=== PATIENT | female | born 1940 | race Caucasian/White ===

== ENCOUNTER 2023-03-02 15:07 | Emergency (ER) | payer MEDICARE, SELFPAY ==
--- NOTE | 2023-03-02 15:15 | ED.URI ---
HPI - URI/Sore Throat General Chief Complaint: Upper Respiratory Infection Stated Complaint: Dizziness,Sore Throat,Lt Ear Irritation,RT Eye Time Seen by Provider: 03/02/23 15:15 Source: patient Mode of arrival: ambulatory Limitations: no limitations History of Present Illness HPI Narrative: Kassi is an 82-year-old female patient presenting to the clinic today with complaints of dizziness, sore throat, left ear pain, and bilateral eye irritation. She reports symptoms began on Friday however yesterday she felt a popping sensation like an explosion in her left ear. States she is having burning sensation to the right side of her throat. Complaints of some dizziness and congestion. Is having a productive cough but is unable to tell me the color of the cough she denies any increase in shortness of breath. She does have a history of COPD. Does have mucopurulent green discharge coming from bilateral eyes. No fever or chills. No known exposure to anyone with COVID, flu, or strep. Allergies to penicillin and sulfa drugs. MD elicited complaint: sore throat and nasal congestion Related Data Home Medications Medication Instructions Recorded Confirmed apixaban 5 mg tablet (Eliquis) 5 mg PO DAILY 03/02/23 03/02/23 aspirin 81 mg chewable tablet 81 mg PO DAILY 03/02/23 03/02/23 atorvastatin 10 mg tablet 10 mg PO DAILY 03/02/23 03/02/23 cholecalciferol (vitamin D3) 25 25 mcg PO DAILY 03/02/23 03/02/23 mcg (1,000 unit) tablet levothyroxine 125 mcg tablet 125 mcg PO DAILY 03/02/23 03/02/23 magnesium oxide 250 mg PO DAILY 03/02/23 03/02/23 meclizine 25 mg tablet 25 mg PO PRN PRN Dizziness Or 03/02/23 03/02/23 Vertigo montelukast 10 mg tablet 10 mg PO HS 03/02/23 03/02/23 pantoprazole 40 mg tablet,delayed 40 mg PO DAILY 03/02/23 03/02/23 release Allergies Allergy/AdvReac Type Severity Reaction Status Date / Time Penicillins AdvReac Mild Rash Verified 03/02/23 15:34 Sulfa (Sulfonamide AdvReac Mild Rash Verified 03/02/23 15:34 Antibiotics) Review of Systems Review of Systems: Pertinent positives per HPI. Patient denies any fever, chills, rash, visual changes, chest pain, palpitations, nausea, vomiting, diarrhea, constipation, abdominal pain, or any urinary issues. [facility] Comments At the time of my signature, I reviewed and agree with the nursing past medical, surgical, social, and family history. There is no relevant family history pertinent to the patient complaint. Exam Narrative: General: Well-developed, obese, in no apparent distress, walks with a walker Head: Normocephalic, atraumatic Eyes: Pupils equally round and reactive to light bilaterally, EOM intact, bilateral sclera and conjunctive injected, green mucopurulent discharge discharge, lids mildly swelling Ears: Right TMs intact and clear, left TM intact, bulging, red, right ear canal clear, left ear canal with brown otorrhea, decreased hearing in the left ear, wears hearing aid. Nose: Nares patent, clear discharge, no inflammation, no sinus tenderness. Mouth: Oral pharynx red/irritated without lesions or masses, good dentition, MMM. Tonsils and adenoids surgically absent Neck: Supple, trachea midline, no enlargement of anterior or posterior cervical nodes, no thyroid masses or goiter palpable. Cardio: Regular rate and rhythm, s1 and s2 normal, no murmur appreciated. Resp: Diminished breath sounds in the lower bases otherwise clear, no rhonchi, rales, wheezing or rubs Course Course Emergency Course: Portions of this record may have been created with voice recognition software. Level of Care: Express Care Visit Vital Signs Vital signs: Vital signs reviewed MDM - URI/Sore Throat MDM Narrative Medical decision making narrative: At the time of visit patient is resting comfortably on the exam table. I suspect patient has URI pharyngitis left otitis media and externa and conjunctivitis with vertigo. Will place the patient on tobramycin eyedrop
[2023-03-02 15:26] VITALS: BP 158/65; PULSE 79; RESP 18; TEMP 37.1; O2SAT 95
== END 2023-03-02 15:41 | disposition home or self-care (01) ==
LOC: EXPTROY 15:17
PROVIDERS: Emergency Provider Nurse Practitioner Family
DX: R42 Dizziness and giddiness (principal); J06.9 Acute upper respiratory infection, unspecified; H66.002 Acute suppurative otitis media without spontaneous rupture of ear drum, left ear; J02.9 Acute pharyngitis, unspecified; H60.312 Diffuse otitis externa, left ear; H10.33 Unspecified acute conjunctivitis, bilateral; J44.9 Chronic obstructive pulmonary disease, unspecified
CPT/HCPCS: 99213; G0463

== ENCOUNTER 2023-05-07 10:31 | Outpatient (CLI) | payer MEDICARE, SELFPAY ==
--- NOTE | ~2023-05-07 | XR_ITS ---
EXAMINATION: XR UGIAC w barium swallow DATE: 05/07/2023 11:58 INDICATION: Diaphragmatic hernia without obstruction or gangrene TECHNIQUE: The patient drank thick barium, gas-producing crystals, and thin barium. Fluoroscopic spot radiographs of the hypopharynx, esophagus, stomach and proximal small bowel were obtained. Fluorosco py exposure time was 2.4 minutes. A total of 1530 images were recorded. COMPARISON: None. FINDINGS: The pharynx is symmetric and without evidence of mass lesion or mucosal irregularity. Esophageal erin lity appears normal in the proximal third of the esophagus. There is interruption of the primary and secondary peristaltic waves at the level of the proximal to mid thirds of the esophagus. This results in pooling of contrast in the mid to distal esophagus. There is a small sliding-type hiatal hernia. There is abnormal contour contour to the posterior wall of the proximal stomach where it extends thro ugh the thoracic hiatus and which may be related to a reported prior attempted hernia repair. Single episode of spontaneous gastroesophageal reflux of a moderate amount of contrast into the mid to dista l esophagus was observed. No additional gastroesophageal reflux was able to be elicited with provocat tamra maneuvers. There is a small duodenal diverticulum along the third portion of the duodenum. IMPRESSION: 1. Small sliding-type hiatal hernia with gastroesophageal reflux. There is an abnormal contour along the posterior margin of the stomach at the thoracic outlet which could be related to a reported prior hernia repair. Correlate with surgical history and could consider further evaluation with endoscopy as clinically indicated. 2. Esophageal dysmotility with loss of the primary and secondary peristaltic waves in the patulous mi d to distal esophagus. Reviewed, dictated and finalized at location A. IMPRESSION: 1. Small sliding-type hiatal hernia with gastroesophageal reflux. There is an a bnormal contour along the posterior margin of the stomach at the thoracic outle t which could be related to a reported prior hernia repair. Correlate with surg ical history and could consider further evaluation with endoscopy as clinically indicated. 2. Esophageal dysmotility with loss of the primary and secondary peristaltic wa ves in the patulous mid to distal esophagus.
== END 2023-05-07 10:32 | disposition home or self-care (01) ==
LOC: ANHIMG 10:41
PROVIDERS: Visit Provider Nurse Practitioner Family
DX: K44.9 Diaphragmatic hernia without obstruction or gangrene (principal); R13.10 Dysphagia, unspecified; K21.9 Gastro-esophageal reflux disease without esophagitis
CPT/HCPCS: 74246

== ENCOUNTER 2023-08-07 02:06 | Day surgery (SDC) | payer MEDICARE, SELFPAY ==
[2023-07-22 10:57] VITALS: BMI 37.0
--- NOTE | 2023-07-28 10:57 | PC.NURSE ---
Spoke with _DAUGHTER IN LAW ANN__ regarding medication __ELIQUIS__. Pt. verbalizes understanding that the last dose of __ELIQUIS__ is to be taken on __08/04/2023___ and the Endoscopist will instruct them when to restart after the procedure. PT. is to remain on Aspirin.
--- NOTE | 2023-08-05 12:02 | SUR.PREOP ---
Message left with patient regarding upcoming procedure. Reviewed preop instructions, appointment times, and procedure prep.
--- NOTE | 2023-08-06 15:51 | PM.HPGS ---
History of Present Illness History of Present Illness Consent: Risks, benefits, and alternatives have been discussed and questions answered. Patient agrees to proceed with procedure. Chief complaint: GERD without esophagitis Narrative: Kassi Chairez is a 83 year old female Who is being investigated today for several issues related to her upper gastrointestinal tract.? She has a long history of acid reflux and had a hiatal hernia repair in 2019 in [place].? She states however that she is still having issues which are somewhat different.? She gets heartburn in the upper chest area usually after meal.? She has increased her PPI to b.i.d..? Sucralfate was added to her regimen at her last visit here in April.? She states that that combination has helped with her neck discomfort.? She points to the left side of her neck and states that she was told by someone in [place] that she has an extra loop in that area.? A recent upper GI barium swallow did not show anything like Zenker's diverticulum.? It did show a sliding-type hiatal hernia and some deformity the proximal stomach which may be related to her previous surgery.? She has choked a couple? of times recently, once on popcorn, once on noodles.? She denies having to stop eating a meal because food is stuck.? She has a 3rd discomfort, which is in the epigastric area and is difficult for her to put into words Review of Systems Review of Systems: All systems reviewed & are unremarkable except as noted in HPI and below PMFSH Past Medical History Medical History Allergies Arthritis Dysphagia Gastroesophageal reflux disease GERD with stricture Heart attack Hiatal hernia Stroke Thyroid disorder Surgical History Surgical History H/O section H/O knee surgery History of carpal tunnel surgery Social History Social History Smoking status: Never smoker Alcohol intake: never Substance use: never Substance use type: does not use Living arrangements: assisted living Additional living arrangements comments: [facility] Spiritual care concerns: No Meds Home Medications and Allergies Home Medications Medication Instructions Recorded Confirmed Type apixaban 5 mg tablet (Eliquis) 5 mg PO BID 03/02/23 08/07/23 History aspirin 81 mg chewable tablet 81 mg PO DAILY 03/02/23 08/07/23 History magnesium oxide 250 mg PO DAILY 03/02/23 08/07/23 History meclizine 25 mg tablet 25 mg PO BID Dizziness Or Vertigo 03/02/23 08/07/23 History montelukast 10 mg tablet 10 mg PO HS 03/02/23 08/07/23 History sucralfate 1 gram tablet (Carafate) 1 g PO TID 1 month #90 tabs 06/17/23 08/07/23 Rx acetaminophen 500 mg capsule 500 mg PO Q6H PRN Pain 07/22/23 08/07/23 History aluminum hydrox-magnesium carb 95 15 ml PO DAILY PRN REFLUX 07/22/23 08/07/23 History mg-358 mg/15 mL oral suspension (Gaviscon) atorvastatin 40 mg tablet 40 mg PO DAILY 07/22/23 08/07/23 History cholecalciferol (vitamin D3) 50 50 mcg PO DAILY 07/22/23 08/07/23 History mcg (2,000 unit) capsule (Vitamin D3) levothyroxine 112 mcg tablet 112 mcg PO DAILY 07/22/23 08/07/23 History pantoprazole 40 mg tablet,delayed 40 mg PO BID 07/22/23 08/07/23 History release sucralfate 1 gram tablet 1 g PO TID 07/22/23 08/07/23 History Allergies Allergy/AdvReac Type Severity Reaction Status Date / Time Penicillins Allergy Intermediate Rash Verified 08/07/23 11:28 Sulfa (Sulfonamide Allergy Intermediate Rash Verified 08/07/23 11:28 Antibiotics) Exam Const: General: alert Orientation/consciousness: patient oriented x3 Resp: Auscultation: clear to auscultation bilaterally Cardio: Rhythm: regular rhythm GI: GI Palp: Yes Soft to palpation and No Tenderness to palpation present (GI) Neuro: General: patient oriented x3 Assessment and Plan As
[2023-08-07 11:32] VITALS: BP 172/70; PULSE 63; RESP 18; TEMP 36.3; O2SAT 98
[2023-08-07] MEDS: LACTATED RINGERS 1,000 ML 150 ML IV CONT (11:42)
--- NOTE | 2023-08-07 12:01 | WPDANESEPPF ---
Anes - Initial Pre Proc Eval Procedure: Operation Date: 08/07/23 12:30 Proposed Procedures p Esophagogastroduodenoscopy EGD - Jere Gipson MD Date/Time: 08/07/23 12:01 Surgeon: Jere Gipson MD Pre Op Diagnosis: GERD without esophagitis Patient Data Age: 83 Gender: F Height: 1.52 m Weight: 89.3 kg Last Vital Signs Temp 97.4 F L 08/07/23 11:32 Pulse 63 08/07/23 11:32 Resp 18 08/07/23 11:32 BP 172/70 H 08/07/23 11:32 Pulse Ox 98 08/07/23 11:32 O2 Del Method Room Air 08/07/23 11:32 Allergies Allergy/AdvReac Type Severity Reaction Status Date / Time Penicillins Allergy Intermediate Rash Verified 08/07/23 11:28 Sulfa (Sulfonamide Allergy Intermediate Rash Verified 08/07/23 11:28 Antibiotics) Home Medications Medication Instructions Recorded Confirmed Type apixaban 5 mg tablet (Eliquis) 5 mg PO BID 03/02/23 08/07/23 History aspirin 81 mg chewable tablet 81 mg PO DAILY 03/02/23 08/07/23 History magnesium oxide 250 mg PO DAILY 03/02/23 08/07/23 History meclizine 25 mg tablet 25 mg PO BID Dizziness Or Vertigo 03/02/23 08/07/23 History montelukast 10 mg tablet 10 mg PO HS 03/02/23 08/07/23 History sucralfate 1 gram tablet (Carafate) 1 g PO TID 1 month #90 tabs 06/17/23 08/07/23 Rx acetaminophen 500 mg capsule 500 mg PO Q6H PRN Pain 07/22/23 08/07/23 History aluminum hydrox-magnesium carb 95 15 ml PO DAILY PRN REFLUX 07/22/23 08/07/23 History mg-358 mg/15 mL oral suspension (Gaviscon) atorvastatin 40 mg tablet 40 mg PO DAILY 07/22/23 08/07/23 History cholecalciferol (vitamin D3) 50 50 mcg PO DAILY 07/22/23 08/07/23 History mcg (2,000 unit) capsule (Vitamin D3) levothyroxine 112 mcg tablet 112 mcg PO DAILY 07/22/23 08/07/23 History pantoprazole 40 mg tablet,delayed 40 mg PO BID 07/22/23 08/07/23 History release sucralfate 1 gram tablet 1 g PO TID 07/22/23 08/07/23 History Patient hx anesthesia problems: none Family hx anesthesia problems: none Results Review: All pre-operative results and documents have been reviewed as part of the pre-operative evaluation. [facility] Past Medical History Medical History Allergies Arthritis Dysphagia Gastroesophageal reflux disease GERD with stricture Heart attack Hiatal hernia Stroke Thyroid disorder Surgical History Surgical History H/O section H/O knee surgery History of carpal tunnel surgery Social History Social History Smoking status: Never smoker Alcohol intake: never Substance use: never Substance use type: does not use Living arrangements: assisted living Additional living arrangements comments: [facility] Spiritual care concerns: No Anes - Eval Final PreProcedure Day of Procedure 08/07/23 12:01 Patient weight: obese Heart: regular rate and rhythm Lungs: clear to auscultation Airway: Mallampati scale class II Neurological: alert and oriented Last oral intake: >/= 8 hours ASA classification: III Emergent: no Anesthetic plan: proceed Anesthesia type and monitoring: general GIVS and standard monitoring Results Review: All pre-operative results and documents have been reviewed as part of the pre-operative evaluation. Informed Consent: The patient's anesthetic plan and its attendant risks and benefits were discussed with the patient/family/POA. Questions were solicited and answers provided to the satisfaction of the patient/family/POA.
[2023-08-07 13:04] VITALS: BP 154/74; PULSE 61; RESP 22; O2SAT 100
[2023-08-07 13:14] VITALS: BP 152/76; PULSE 64; RESP 18; O2SAT 98
[2023-08-07 13:24] VITALS: BP 164/78; PULSE 60; RESP 18; O2SAT 98
== END 2023-08-07 13:29 | disposition home or self-care (01) ==
PROVIDERS: PCP Nurse Practitioner; Visit Provider Internal Medicine Gastroenterology
PROC: 0DJ08ZZ Inspection of Upper Intestinal Tract, Via Natural or Artificial Opening Endoscopic (ICD-10-PCS; CPT 43235; principal; 2023-08-07 12:30)
DX: K22.10 Ulcer of esophagus without bleeding (principal); K44.9 Diaphragmatic hernia without obstruction or gangrene; K21.00 Gastro-esophageal reflux disease with esophagitis, without bleeding; E07.9 Disorder of thyroid, unspecified; I25.2 Old myocardial infarction; E66.9 Obesity, unspecified; Z68.38 Body mass index [BMI] 38.0-38.9, adult; Z79.01 Long term (current) use of anticoagulants; Z79.82 Long term (current) use of aspirin; Z86.73 Personal history of transient ischemic attack (TIA), and cerebral infarction without residual deficits
CPT/HCPCS: 43239; 87081; 88305; J2704; J7120

== ENCOUNTER 2023-09-18 18:35 | Emergency (ER) | payer MEDICARE, SELFPAY ==
--- NOTE | ~2023-09-18 | CT_ITS ---
EXAMINATION: CT cervical spine wo con DATE: 09/18/2023 21:34 INDICATION: Head injury TECHNIQUE: Computed tomography (CT) of the cervical spine was performed without intravenous contrast. The dose-length product (DLP) was 493.38 mGy-cm. Automated exposure control and iterative reconstruc tion technique were employed. COMPARISON: None FINDINGS: There are 2 mm of anterolisthesis of C6 on C7. There is moderate loss of intervertebral dis c space height at C5-6. The odontoid process is intact. The vertebral body heights are maintained. Th ere is no fracture. There is multilevel moderate facet and uncovertebral joint osteoarthritis. Bilate ral mastoid effusions are noted. There is fibrous union of the posterior C1 ring. IMPRESSION: 1. Mild to moderate cervical spondylosis without acute findings. Reviewed, dictated and finalized at location F. STOCK MAKER
--- NOTE | ~2023-09-18 | CT_ITS ---
EXAMINATION: CT brain wo con INDICATION: Head injury COMPARISON: None TECHNIQUE: Standard unenhanced head CT. The dose-length product (DLP) was 681.00 mGy-cm. The mA was a djusted according to patient size. Iterative reconstruction technique was employed. FINDINGS: No acute intraparenchymal hemorrhage. No evidence of mass lesion. No evidence of acute infa rction. There are areas of prior infarction in the left cerebellum, right temporal lobe, and the bila teral frontal lobes. There is mild periventricular and subcortical hypodensity probably related to sm all vessel ischemic disease. There is mild prominence of the sulci and ventricles related to cerebral atrophy. Intracranial calcified cerebral atherosclerosis is noted. No extra-axial collections. No ma ss effect or midline shift. Changes in the globes are likely from ocular lens surgery. There is a pos terior scalp hematoma. The visualized sinuses and mastoid air cells are well aerated. IMPRESSION: 1. Areas of prior infarction without acute intracranial abnormality. 2. Age related findings. Reviewed, dictated and finalized at location F. FITS CLERK
[2023-09-18 18:37] VITALS: BP 158/86; PULSE 73; RESP 16; TEMP 36.8; O2SAT 100
[2023-09-18 20:28] VITALS: BP 168/81; PULSE 67; RESP 24; O2SAT 95
--- NOTE | 2023-09-18 21:35 | ED.FALL ---
HPI - Fall General Chief Complaint: Fall Stated Complaint: fall, hit head, on eliquis Time Seen by Provider: 09/18/23 21:16 Source: patient Limitations: no limitations History of Present Illness HPI Narrative: Patient is a 83-year-old female presents to the emergency department complaining of a fall. Patient states around 6:00 p.m. she was in her room and did have the lights on and went to go sit down on a chair but missed the chair and of sitting down on a basket fell backwards hitting the back of her head. Patient denies loss of consciousness. Patient is to use of Eliquis regularly. Patient admits to being ambulatory since the event. Patient denies any pain anywhere aside from for she had her head which is mild. Patient denies numbness, weakness, urinary const, stool incontinence, recent illness, chest pain, difficulty breathing, paresthesias, vomiting, nausea, diarrhea, melena, hematochezia or vision changes, difficulty swallowing, neck pain, back pain. Patient denies any blood loss from anywhere. Related Data Home Medications Medication Instructions Recorded Confirmed apixaban 5 mg tablet (Eliquis) 5 mg PO BID 03/02/23 08/20/23 aspirin 81 mg chewable tablet 81 mg PO DAILY 03/02/23 08/20/23 magnesium oxide 250 mg PO DAILY 03/02/23 08/20/23 meclizine 25 mg tablet 25 mg PO BID Dizziness Or Vertigo 03/02/23 08/20/23 montelukast 10 mg tablet 10 mg PO HS 03/02/23 08/20/23 aluminum hydrox-magnesium carb 95 15 ml PO DAILY PRN REFLUX 07/22/23 08/20/23 mg-358 mg/15 mL oral suspension (Gaviscon) atorvastatin 40 mg tablet 40 mg PO DAILY 07/22/23 08/20/23 cholecalciferol (vitamin D3) 50 50 mcg PO DAILY 07/22/23 08/20/23 mcg (2,000 unit) capsule (Vitamin D3) levothyroxine 112 mcg tablet 112 mcg PO DAILY 07/22/23 08/20/23 pantoprazole 40 mg tablet,delayed 40 mg PO BID 07/22/23 08/20/23 release sucralfate 1 gram tablet 1 g PO TID 07/22/23 08/20/23 Allergies Allergy/AdvReac Type Severity Reaction Status Date / Time Penicillins Allergy Intermediate Rash Verified 09/18/23 20:33 Sulfa (Sulfonamide Allergy Intermediate Rash Verified 09/18/23 20:33 Antibiotics) Review of Systems Review of Systems: A 10 system review of systems was completed on the patient and is negative except for what is stated in the HPI. Nursing and ancillary documentation was reviewed. [facility] Past Medical History Medical History (Updated 09/18/23 @ 22:23 by Anselmo Brumfield DO) Allergies Arthritis Dysphagia Gastroesophageal reflux disease GERD with stricture Heart attack Hiatal hernia recurrent hernia and recalcitrant reflux Stroke Thyroid disorder Surgical History Surgical History H/O section H/O knee surgery History of carpal tunnel surgery Family History Family History Grandparent Diabetes mellitus Mother Heart disease Father Cerebrovascular accident Hypertension Social History Social History Smoking status: Never smoker Alcohol intake: never Substance use: never Substance use type: does not use Living arrangements: assisted living Additional living arrangements comments: [facility] [place] Spiritual care concerns: No Comments At time of signature, I have reviewed and agree with nursing past medical, surgical, social and family history unless otherwise noted. Please see the nursing chart for further information. There is no relevant family history pertinent to the presenting complaint. Exam Narrative: CONST: No acute distress. Well nourished. HENMT: Head is normocephalic. Tacky mucous membranes. No posterior oropharynx erythema. Small area of swelling to the superior occipital region without any overlying breaks in the skin, no palpable bony deformities, mild tenderness to palpation. EYES: No conjunctival icte
[2023-09-18] MEDS: ACETAMINOPHEN 500 MG TABLET 1000 MG PO (22:04)
[2023-09-18 23:27] VITALS: BP 157/64; PULSE 67; RESP 17; O2SAT 97
== END 2023-09-18 23:27 | disposition home or self-care (01) ==
PROVIDERS: Emergency Provider Student in an Organized Health Care Education/Training Program; PCP Nurse Practitioner
DX: S00.03XA Contusion of scalp, initial encounter (principal); I25.2 Old myocardial infarction; E07.9 Disorder of thyroid, unspecified; K21.9 Gastro-esophageal reflux disease without esophagitis; M19.90 Unspecified osteoarthritis, unspecified site; Z86.73 Personal history of transient ischemic attack (TIA), and cerebral infarction without residual deficits; Z79.01 Long term (current) use of anticoagulants; M47.812 Spondylosis without myelopathy or radiculopathy, cervical region; W07.XXXA Fall from chair, initial encounter
CPT/HCPCS: 70450; 72125; 99284; A9270

== ENCOUNTER 2023-09-25 11:38 | Emergency (ER) | payer MEDICARE, SELFPAY ==
[2023-09-25 11:43] VITALS: BP 143/84; PULSE 66; RESP 20; TEMP 36.4; O2SAT 100
[2023-09-25 11:47] VITALS: BP 183/89
[2023-09-25 11:58] VITALS: BP 166/79; PULSE 60; RESP 18; O2SAT 98
--- NOTE | 2023-09-25 12:37 | ECG_ITS ---
Measurements Intervals [place] Rate: 56 P: 2 MS: 202 QRS: -11 QRSD: 106 T: 21 QT: 405 QTc: 391 Interpretive Statements SINUS BRADYCARDIA DELAYED PRECORDIAL R/S TRANSITION INFERIOR INFARCT, AGE INDETERMINATE BORDERLINE T WAVE ABNORMALITY- ANTERIOR LEADS ABNORMAL ECG NO PREVIOUS ECG AVAILABLE FOR COMPARISON Electronically Signed On 09-25-2023 12:56:10 PACKING MACHINE OPERATOR by Regulo Lockwood D.O.
[2023-09-25] MEDS: BELLADONNA ALK/PHENOB ELIX 10 ML, MAG HYDROX/ALUMINUM HYD/SIMETH 30 ML, LIDOCAINE HCL 2... PO (12:45)
[2023-09-25 13:07] LABS: Basophils Absolute Auto 0.1 K/mm3 (0.0-0.1); Basophils Percent Auto 1.5 % (0.2-1.2); Eosinophils Absolute Auto 0.4 K/mm3 (0-0.3); Eosinophils Percent Auto 5.6 % (0-4.4); Hematocrit 46.4 % (37.0-47.0); Hemoglobin 14.6 g/dL (12.0-15.0); Immature Granulocyte Absolute 0.02 K/mm3 (0.00-0.031); Immature Granulocyte Percent A 0.3 % (0-0.5); Lymphocytes Absolute Auto 1.84 K/mm3 (0.9-3.2); Lymphocytes Percent Auto 25.2 % (18.3-44.2); Mean Corpuscular HGB Conc 31.5 g/dl (32-36); Mean Corpuscular Hemoglobin 28.6 pg (26-34); Mean Platelet Volume 10.8 fl (7.4-10.4); Monocytes Absolute Auto 0.5 K/mm3 (0.1-0.6); Monocytes Percent Auto 7.4 % (2.6-8.5); Neutrophils Absolute Auto 4.4 K/mm3 (1.3-6.7); Platelet Count Result 250 k/mm3 (150-375); Red Cell Distribution Width 13.5 % (11.5-14.5); White Blood Count 7.3 K/mm3 (4.5-10.0)
[2023-09-25 13:19] LABS: Alanine Aminotransferase 10 U/L (6-35); Alkaline Phosphatase 171 U/L (38-126); Anion Gap 5 mmol/L (8-16); Aspartate Amino Transferase 27 U/L (14-36); Bilirubin,Total 0.7 mg/dL (0.2-1.3); Blood Urea Nitrogen 19 mg/dL (7-17); Calcium 10.4 mg/dL (8.4-10.2); Carbon Dioxide 28 mmol/L (22-30); Chloride 104 mmol/L (98-107); Estimated CRCL calculation 41 ml/min; Estimated Glomerular Filt Rate 60; Glucose 110 mg/dL (65-110); Potassium 4.7 mmol/L (3.4-5.0); Sodium 137 mmol/L (137-145)
--- NOTE | 2023-09-25 13:56 | ED.GENADULT ---
HPI - General Adult General Chief complaint: Recheck/Abnormal Lab/Rx Stated complaint: High BP Time Seen by Provider: 09/25/23 12:11 History of Present Illness HPI narrative: Patient is an 83-year-old female who presents ER with concerns for elevated blood pressure. She was at the dentist earlier in reports that the air freshener coming in through the vents was overwhelming. She had them open the windows at the dental office. She began getting more shaky and it was causing her distress. Also while she was lying back she was having symptoms from her hiatal hernia. As she is standing up to leave a she was getting lightheaded in the took her blood pressure and found her systolic blood pressure be above 200 mmHg. She has history of CVA and want to come in to be checked. She has no chest pain or shortness of breath at this time. She does have mild elevation of blood pressure upon arrival. She reports compliance with home medication. Related Data Home Medications Medication Instructions Recorded Confirmed apixaban 5 mg tablet (Eliquis) 5 mg PO BID 03/02/23 09/25/23 aspirin 81 mg chewable tablet 81 mg PO DAILY 03/02/23 09/25/23 magnesium oxide 250 mg PO DAILY 03/02/23 09/25/23 meclizine 25 mg tablet 25 mg PO BID Dizziness Or Vertigo 03/02/23 09/25/23 montelukast 10 mg tablet 10 mg PO HS 03/02/23 09/25/23 aluminum hydrox-magnesium carb 95 15 ml PO DAILY PRN REFLUX 07/22/23 09/25/23 mg-358 mg/15 mL oral suspension (Gaviscon) atorvastatin 40 mg tablet 40 mg PO DAILY 07/22/23 09/25/23 cholecalciferol (vitamin D3) 50 50 mcg PO DAILY 07/22/23 09/25/23 mcg (2,000 unit) capsule (Vitamin D3) levothyroxine 112 mcg tablet 112 mcg PO DAILY 07/22/23 09/25/23 pantoprazole 40 mg tablet,delayed 40 mg PO BID 07/22/23 09/25/23 release sucralfate 1 gram tablet 1 g PO TID 07/22/23 09/25/23 Allergies Allergy/AdvReac Type Severity Reaction Status Date / Time Penicillins Allergy Intermediate Rash Verified 09/25/23 11:55 Sulfa (Sulfonamide Allergy Intermediate Rash Verified 09/25/23 11:55 Antibiotics) Review of Systems Review of Systems: All systems reviewed & are unremarkable except as noted in HPI and below Constitutional: Constitutional: Reports no additional constitutional complaints ENT: Reports system reviewed and no additional complaints, except as documented Cardiovascular: Cardiovascular: Reports no additional cardiovascular complaints Respiratory: Respiratory: Reports no additional respiratory complaints Gastrointestinal: Gastrointestinal: Reports no additional gastrointestinal complaints [facility] Past Medical History Medical History (Updated 09/25/23 @ 14:05 by Waldo Cardona MD) Allergies Arthritis Dysphagia Gastroesophageal reflux disease GERD with stricture Heart attack Hiatal hernia recurrent hernia and recalcitrant reflux Stroke Thyroid disorder Surgical History Surgical History H/O section H/O knee surgery History of carpal tunnel surgery Family History Family History Grandparent Diabetes mellitus Mother Heart disease Father Cerebrovascular accident Hypertension Social History Social History Smoking status: Never smoker Alcohol intake: never Substance use: never Substance use type: does not use Living arrangements: assisted living Additional living arrangements comments: [facility] Spiritual care concerns: No Exam Narrative: GENERAL: Well-appearing, well-nourished, and in no acute distress. HEAD: Normocephalic, atraumatic. ENT: Mucous membranes moist. CHEST: Clear to auscultation. No respiratory distress. HEART: Regular rate and rhythm. Normal peripheral pulses. ABDOMEN: Soft, nontender, nondistended. EXTREMITIES: Normal range of motion. No edema. SKIN: Warm, dry, no
[2023-09-25 14:02] VITALS: BP 141/58; PULSE 58; RESP 18; O2SAT 96
== END 2023-09-25 14:18 | disposition home or self-care (01) ==
PROVIDERS: Emergency Provider Emergency Medicine; PCP Nurse Practitioner
DX: I10 Essential (primary) hypertension (principal); K21.9 Gastro-esophageal reflux disease without esophagitis; K44.9 Diaphragmatic hernia without obstruction or gangrene; I25.2 Old myocardial infarction; E07.9 Disorder of thyroid, unspecified; M19.90 Unspecified osteoarthritis, unspecified site; Z86.73 Personal history of transient ischemic attack (TIA), and cerebral infarction without residual deficits; Z79.01 Long term (current) use of anticoagulants; Z79.82 Long term (current) use of aspirin; R94.31 Abnormal electrocardiogram [ECG] [EKG]; R00.1 Bradycardia, unspecified
CPT/HCPCS: 36415; 80053; 85025; 93005; 99283; A9270

== ENCOUNTER 2024-08-03 12:28 | Outpatient (CLI) | payer MEDICARE, SELFPAY ==
--- NOTE | ~2024-08-03 | US_ITS ---
EXAMINATION: US thyroid DATE: 08/03/2024 14:14 INDICATION: Hypercalcemia. Hyperparathyroidism. TECHNIQUE: Multiple ultrasound images of the thyroid were obtained. COMPARISON: CT cervical spine 09/18/2023 FINDINGS: The right thyroid lobe measures 2.6 x 1.3 x 1.7 cm. The left thyroid lobe measures 2.8 x 0.9 x 0.8 c m. The thyroid demonstrates heterogeneous echogenicity and normal vascularity. In the right thyroid l obe, there is a 14 mm solid, hypoechoic, wider than tall nodule with smooth margin without echogenic foci (TI-RADS TR4). In the thyroid isthmus, there is a 1.3 cm solid, hypoechoic, wider than tall nodu le with smooth margin without echogenic foci (TR4). IMPRESSION: 1. Small thyroid nodules. Consider thyroid ultrasound in one year if clinically indicated given the p atient's age. Reviewed, dictated and finalized at location A. LE PROCESSOR IMPRESSION: 1. Small thyroid nodules. Consider thyroid ultrasound in one year if clinically indicated given the patient's age.
== END 2024-08-03 12:29 | disposition home or self-care (01) ==
PROVIDERS: PCP Nurse Practitioner; Visit Provider Nurse Practitioner
DX: E83.52 Hypercalcemia (principal); R79.89 Other specified abnormal findings of blood chemistry; E04.2 Nontoxic multinodular goiter
CPT/HCPCS: 76536